=== PATIENT | male | born 1975 | race Two or more races ===

== ENCOUNTER 2020-06-30 01:39 | Emergency (ER) | payer SELFPAY ==
--- NOTE | 2020-06-30 02:10 | NUR ---
PT BIBRA FROM STREET C/O KNEE PAIN. PER RA, PT WAS REFUSING TO GET OFF BUS AND FELL ON KNEE WHILE BEING ESCORTED OFF BUS. PT VERY AGGRESSIVE AND YELLING AT STAFF ON ARRIVAL. REFUSING TO ANSWER QUESTIONS OR TO HAVE VITAL SIGNS TAKEN. DR. FUENTES WITH PATIENT FOR MEDICAL SCREENING EXAM. HOSPITAL SECURITY AT BEDSIDE D/T PT'S AGGRESSIVE BEHAVIOR. PT OFFERRED XRAY BUT REMAINS UNCOOPERATIVE. PT GOT UP FROM WHEELCHAIR AND AMBULATED OUTSIDE, DEMANDING FOR HIS PROPERTY WHICH WE WERE INFORMED BY EMS PT HAD KNIVES IN HIS BACKPACK. PT ALSO DEMANDING FOR A NEW WHEELCHAIR. 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 PT AMBULATED OUT OF FACILITY WITH HOSPITAL SECURITY.
== END 2020-06-30 02:34 | disposition left against medical advice (07) ==
LOC: ER 01:41
DX: M25.561 Pain in right knee (principal); R45.1 Restlessness and agitation; W05.0XXA Fall from non-moving wheelchair, initial encounter; Y93.89 Activity, other specified; Y92.811 Bus as the place of occurrence of the external cause; Y99.8 Other external cause status